=== PATIENT | female | born 1955 | race Caucasian/White ===

== ENCOUNTER 2023-07-02 13:58 | Outpatient (CLI) | payer MEDICARE ==
[2023-07-02] MEDS ORDERED: Iopamidol 300 61% 100 ML VIAL FS ONE (14:09)
[2023-07-02] MEDS ORDERED: Magnevist 469MG/ML 20 ML VIAL ONE (14:12)
== END 2023-07-02 13:59 | disposition home or self-care (01) ==
LOC: CSHMRI 13:58
PROVIDERS: ATTEND Internal Medicine
DX: C53.8 Malignant neoplasm of overlapping sites of cervix uteri (principal); C67.9 Malignant neoplasm of bladder, unspecified; D50.0 Iron deficiency anemia secondary to blood loss (chronic); R93.5 Abnormal findings on diagnostic imaging of other abdominal regions, including retroperitoneum
CPT/HCPCS: 71260; 72197